=== PATIENT | male | born 1950 | race Caucasian/White ===

== ENCOUNTER → 2018-06-20 | Outpatient (CLI) | payer OTHER ==
[2018-06-20 11:35] LABS: CALCIUM 9.4 mg/dL (8.5-10.1); POTASSIUM 4.4 mmol/L (3.5-5.1)
== END ==
LOC: M.LAB 10:08
PROVIDERS: Nurse Practitioner
DX: I10 Essential (primary) hypertension (principal)

== ENCOUNTER → 2020-02-28 | Outpatient (CLI) | payer OTHER ==
--- NOTE | 2020-02-28 16:51 | CARDNUC ---
[place] [address] CARDIAC NUCLEAR IMAGING REPORT Name: BRENT DINERO Room: [facility]#: [id number] Admission: 02/28/20 Attend Phys: Geovanni Zambrano Discharge: Date of : 46 Date of Service: 02/28/20 1651 Report #: [id number] THIS REPORT FOR: cc: Fan Pack MD, Rene P. MD Liston, Michael J. MD [facility] ~ APPROVED REPORT Study performed: 02/28/2020 14:38:30 Exam: Nuclear Stress Test Indication: Dyspnea Patient Location: Out-Patient Stress Tech: Kaycee Fletcher Stress Nurse: Letty Zambrano RN Ht: 5 ft 11 in Wt: 185 lbs BSA: 2.04 m2 BMI: 25.79 Medical History Medical History: CAD s/p [place], HTN Medications: diltiazem, lisinopril, ntg Allergies: amlodipine, iodine, pantoprazole, red dye Cardiac Risk Factors: Age, FHX of CAD, HTN Exercise History: Physically active Stress Test Details Stress Test: Exercise stress converted to pharmacologic stress due to failure to obtain a diagnostic stress test. Reason for pharmacologic stress test: changed from exercise stress test due to inability to reach target heart rate. HR Resting HR: 53 bpm Max Heart Rate (APMHR): 149 bpm Max HR Achieved: 112 bpm Target HR (85% APMHR): 126 bpm % of APMHR: 75 Recovery HR: 74 bpm BP Resting BP: 138/80 mmHg Max BP: 168/78 mmHg ECG Resting ECG: [place] [address] CARDIAC NUCLEAR IMAGING REPORT Name: BRENT DINERO Johnny Room: [facility]#: [id number] Admission: 02/28/20 Attend Phys: Geovanni Zambrano Discharge: Date of : 46 Date of Service: 02/28/20 1651 Report #: [id number] Stress ECG: Sinus Tachycardia ST Change: None Arrhythmia: None Recovery ECG: Sinus Rhythm Recovery ST Change: None Recovery Arrhythmia: None Clinical Reason for Termination: Maximal effort, Completed protocol The patient tolerated Lexiscan infusion without significant cardiac symptoms. Nurse Comments changed to walking bill due to pt unalbe to reach desired hr on treadmill Stress ECG Conclusion The baseline twelve-lead EKG shows sinus rhythm without significant ST segment or T wave abnormality. EKGs obtained during and post Lexiscan infusion show sinus rhythm and sinus tachycardia with no significant ST segment or T wave changes when compared to baseline. There were no stress-induced arrhythmias. NM EXAM: Myocardial Perfusion REST/STRESS Resting Data Rest SPECT myocardial perfusion imaging was performed in supine position 30 minutes following the intravenous injection of 9.1 mCi of Tc-99m Sestamibi. Time of rest injection: 1300 The images were gated to evaluate regional wall motion and calculate left ventricular ejection fraction. Administration Route: IV Administration Site: Right Wrist Pharmacologic Stress Pharmacologic stress test was performed by injecting Regadenoson 0.4 mg IV push followed by the intravenous injection of 31.1 mCi of Tc-99m Sestamibi. Time of stress injection: 1450 Administration Route: IV Administration Site: Right Wrist Heart Rate at time of stress injection: 108 bpm. Gated Stress SPECT was performed 45 minutes after stress injection. The images were gated to evaluate regional [place] [address] CARDIAC NUCLEAR IMAGING REPORT Name: BRENT DINERO Room: [facility]#: [id number] Admission: 02/28/20 Attend Phys: Geovanni Zambrano Discharge: Date of : 46 Date of Service: 02/28/20 1651 Report #: [id number] left ventricular ejection fraction. Prone imaging was performed. Study Quality Study: Good Artifact: Mild Diaphragmatic artifact Study Data At rest, the left ventricular ejection fraction was 66%.. Post stress, the left ventricular ejection was 52%.. TID = 1.07. Perfusion Perfusion studies obtained in the supine position at rest and post-rest show mild photopenia involving the mid and basal inferior wall that resolves with post-rest prone imaging suggesting diaphragmatic attenuation artifact. No other significant fixed or reversible defects are identified. Wall Motion Gated studies show preserved left ventricular systolic function. There is a basilar inferior wall motion abnormality of uncertain significance. This is possibly due to diaphragmatic artifact affecting gating quality. I do not see a perfusion abnormality to suggest infarction. Nuclear Conclusion ECG Findings: negative for ischemia Clinical Findings: negative for ischemia Nuclear Findings: negative for ischemia Exercise Capacity: not assessed Left Ventricular Function: normal Risk Study: low Perfusion studies show no defects to suggest infarct or ischemia. Left ventricular systolic function appears preserved on gated studies. This is a low risk study. <Conclusion> The baseline twelve-lead EKG shows sinus rhythm without significant ST segment or T wave abnormality. EKGs obtained during and post Lexiscan infusion show sinus rhythm and sinus tachycardia [place] [address] CARDIAC NUCLEAR IMAGING REPORT Name: BRENT DINERO Room: [facility]#: [id number] Admission: 02/28/20 Attend Phys: Geovanni Zambrano Discharge: Date of : 46 Date of Service: 02/28/201650 Report #: [id number] segment or T wave changes when compared to baseline. There were no stress-induced arrhythmias. <ELECTRONICALLY SIGNED> By: Carlos Coelho MD, [facility] 02/28/201650 50 1651 Carlos Coelho MD, FACC /INF
== END ==
LOC: M.NUC 02-20 07:37
PROVIDERS: ATTEND Internal Medicine
DX: I25.119 Atherosclerotic heart disease of native coronary artery with unspecified angina pectoris (principal); I21.4 Non-ST elevation (NSTEMI) myocardial infarction